=== PATIENT | female | born 2000 | race Asian ===

== ENCOUNTER 2019-06-01 11:31 | Emergency (ER) | payer OTHER ==
[~2019-06-01] VITALS: Ht 157.5 cm; Wt 61.6 kg
[2019-06-01 12:19] LABS: COLOR,URINE YELLOW; GLUCOSE,URINE NEG (NEG)
[2019-06-01 12:20] LABS: BILIRUBIN,URINE NEG (NEG); NITRITE,URINE NEG (NEG); UROBILINOGEN,URINE 0.2 mg/dL (0.2 mg/dL)
[2019-06-01 12:24] LABS: WBC,URINE >40 /HPF (0-4)
[2019-06-01 12:25] LABS: BACTERIA,URINE MOD /HPF (0-FEW); SQUAMOUS EPITHELIAL CELL,UR MOD /LPF
[2019-06-01 12:26] LABS: CLARITY,URINE TURBID
[2019-06-01] MEDS ORDERED: CEPH-264 PO (13:07)
--- NOTE | 2019-06-01 13:07 | PHYS DOC ---
Past History Past Medical History: No Pertinent History Past Surgical History: No Surgical History Alcohol Use: None Adult General Chief Complaint Chief Complaint: PELVIC PAIN HPI HPI 18-year-old female that is 14 weeks presents with dysuria and increased urinary frequency. The patient has been having some dysuria and low back pain for few days. The dysuria started 4 days ago. She has not had a fever at home. The pain comes and goes. It is moderate in intensity. She is concerned for UTI. She is never had a kidney stone. She has had no vaginal bleeding no vaginal discharge. She has no other complaints at this time. Review of Systems Review of Systems Constitutional: Denies fever or chills [] Eyes: Denies change in visual acuity, redness, or eye pain [] HENT: Denies nasal congestion or sore throat [] Respiratory: Denies cough or shortness of breath [] Cardiovascular: No additional information not addressed in HPI [] GI: Denies abdominal pain, nausea, vomiting, bloody stools or diarrhea [] : Denies dysuria or hematuria [] Musculoskeletal: Low back pain [] Integument: Denies rash or skin lesions [] Neurologic: Denies headache, focal weakness or sensory changes [] Endocrine: Denies polyuria or polydipsia [] All other systems were reviewed and found to be within normal limits, except as documented in this note. Allergies Allergies Allergies Coded Allergies Type Severity Reaction Last Updated Verified No Known Drug Allergies 06/01/19 No Physical Exam Physical Exam Constitutional: Well developed, well nourished, no acute distress, non-toxic appearance. [] HENT: Normocephalic, atraumatic, bilateral external ears normal, oropharynx moist, no oral exudates, nose normal. [] Eyes: PERRLA, EOMI, conjunctiva normal, no discharge. [] Neck: Normal range of motion, no tenderness, supple, no stridor. [] Cardiovascular:Heart rate regular rhythm, no murmur [] Lungs & Thorax: Bilateral breath sounds clear to auscultation [] Abdomen: Bowel sounds normal, soft, suprapubic tenderness, no masses, no pulsatile masses. [] Skin: Warm, dry, no erythema, no rash. [] Back: No tenderness, no CVA tenderness. [] Extremities: No tenderness, no cyanosis, no clubbing, ROM intact, no edema. [] Neurologic: Alert and oriented X 3, normal motor function, normal sensory function, no focal deficits noted. [] Psychologic: Affect normal, judgement normal, mood normal. [] Current Patient Data Vital Signs Vital Signs Date Time Temp Pulse Resp B/P (MAP) Pulse Ox O2 Delivery O2 Flow Rate FiO2 06/01/19 11:59 97.9 97 18 111/63 (79) 100 Room Air Lab Results Laboratory Tests Test 06/01/19 11:45 06/01/19 11:59 Urine Collection Type Unknown Urine Color Yellow Urine Clarity Turbid Urine pH 6.0 Urine Specific [place] 1.015 Urine Protein 30 mg/dl (NEG-TRACE) Urine Glucose (UA) Neg mg/dL (NEG) Urine Ketones (Stick) Neg mg/dL (NEG) Urine Blood Small (NEG) Urine Nitrite Neg (NEG) Urine Bilirubin Neg (NEG) Urine Urobilinogen Dipstick 0.2 mg/dL (0.2 mg/dL) Urine Leukocyte Esterase Mod (NEG) Urine RBC 3-5 /HPF (0-2) Urine WBC >40 /HPF (0-4) Urine Squamous Epithelial Cells Mod /LPF Urine Bacteria Mod /HPF (0-FEW) POC Urine HCG, Qualitative hcg positive (Negative) EKG EKG [] Radiology/Procedures Radiology/Procedures [] Course & Med Decision Making Course & Med Decision Making Pertinent Labs and Imaging studies reviewed. (See chart for details) The patient appears to have a UTI. I will treat her with Keflex for 5 days. She is stable for discharge at this time. If this does not resolve her symptoms, she may need an ultrasound to rule out kidney stone. [] Dragon Disclaimer Dragon Disclaimer This electronic medical record was generated, in whole or in part, using a voice recognition dictation system. Departure Departure: Impression: Primary Impression: UTI (urinary tract infection) Additional Impression: Disposition: HOME, SELF-CARE Condition: STABLE Referrals: PCP,ARBEN (PCP) Patient Instructions: - Urinary Tract Infection Scripts Cephalexin (KEFLEX) 500 Mg Capsule 1 CAP PO TID for UTI for 5 Days, #15 CAP 0 Refills Prov: LUIS MART DO 06/01/19 Problem Qualifiers Primary Impression: UTI (urinary tract infection) Urinary tract infection type: acute cystitis Hematuria presence: with hematuria Qualified Codes: N30.01 - Acute cystitis with hematuria Additional Impression: Weeks of gestation: 14 weeks Qualified Codes: Z3A.14 - 14 weeks gestation of LUIS MART DO Jun 01, 2019 13:07
[2019-06-01 13:22] VITALS: BP 93/53
== END 2019-06-01 13:23 | disposition home or self-care (01) ==
LOC: ER 11:31
DX: O23.41 Unspecified infection of urinary tract in pregnancy, first trimester (principal); Z3A.13 13 weeks gestation of pregnancy
CPT/HCPCS: 81001; 81025; 87086; 99283

== ENCOUNTER 2019-07-09 08:27 | Emergency (ER) | payer OTHER ==
[~2019-07-09] VITALS: Ht 157.5 cm; Wt 68.0 kg
[~2019-07-09 08:27] MED LIST: CEPH-264 PO
[2019-07-09 08:36] VITALS: BP 135/73
[2019-07-09 09:18] LABS: BILIRUBIN,URINE NEG (NEG); CLARITY,URINE CLOUDY; COLOR,URINE YELLOW; GLUCOSE,URINE NEG (NEG); NITRITE,URINE NEG (NEG); UROBILINOGEN,URINE 0.2 mg/dL (0.2 mg/dL)
[2019-07-09 09:19] LABS: BACTERIA,URINE MANY /HPF (0-FEW); SQUAMOUS EPITHELIAL CELL,UR MANY /LPF
[2019-07-09] MEDS ORDERED: CEPH-264 PO (09:48)
[2019-07-09] MEDS ORDERED: MICO45CR41 VG (09:48)
--- NOTE | 2019-07-09 09:48 | PHYS DOC ---
Past History Past Medical History: UTI Past Surgical History: No Surgical History Alcohol Use: None General Adult EDM: Chief Complaint: VAGINAL PROBLEM HPI: HPI: Patient is a 18-year-old female who presents to ER today for evaluation of vaginal itching and frequent urination. Patient says she feels like she had a yeast infection. Patient says she is 19 weeks , denies any pelvic pain, no vaginal bleeding. Patient denies any abdominal pain. Patient denies any fever, no cough, no trouble breathing. Review of Systems: Review of Systems: Constitutional: Denies fever or chills Eyes: Denies change in visual acuity HENT: Denies nasal congestion or sore throat Respiratory: Denies cough or shortness of breath Cardiovascular: Denies chest pain or edema GI: Denies abdominal pain, nausea, vomiting, bloody stools or diarrhea : POSITIVE FOR dysuria, VAGINAL ITCHING Musculoskeletal: Denies back pain or joint pain Integument: Denies rash Neurologic: Denies headache, focal weakness or sensory changes Endocrine: Denies polyuria or polydipsia Lymphatic: Denies swollen glands Psychiatric: Denies depression or anxiety Heart Score: Risk Factors: Risk Factors: DM, Current or recent (<one month) smoker, HTN, HLP, family history of CAD, obesity. Risk Scores: Score 0 - 3: 2.5% MACE over next 6 weeks - Discharge Home Score 4 - 6: 20.3% MACE over next 6 weeks - Admit for Clinical Observation Score 7 - 10: 72.7% MACE over next 6 weeks - Early Invasive Strategies Allergies: Allergies: Allergies Coded Allergies Type Severity Reaction Last Updated Verified No Known Drug Allergies 06/01/19 No Physical Exam: PE: Constitutional: Well developed, well nourished, no acute distress, non-toxic appearance. [] HENT: Normocephalic, atraumatic, bilateral external ears normal, oropharynx moist, no oral exudates, nose normal. [] Eyes: PERRLA, EOMI, conjunctiva normal, no discharge. [] Neck: Normal range of motion, no tenderness, supple, no stridor. [] Cardiovascular:Heart rate regular rhythm, no murmur [] Lungs & Thorax: Bilateral breath sounds clear to auscultation [] Abdomen: Bowel sounds normal, soft, no tenderness, no masses, no pulsatile masses. [] Skin: Warm, dry, no erythema, no rash. [] Back: No tenderness, no CVA tenderness. [] Extremities: No tenderness, no cyanosis, no clubbing, ROM intact, no edema. [] Neurologic: Alert and oriented X 3, normal motor function, normal sensory function, no focal deficits noted. [] Psychologic: Affect normal, judgement normal, mood normal. [] Current Patient Data: Labs: Laboratory Tests Test 07/09/19 08:50 Urine Collection Type Unknown Urine Color Yellow Urine Clarity Cloudy Urine pH 7.0 Urine Specific [place] 1.020 Urine Protein Neg (NEG-TRACE) Urine Glucose (UA) Neg mg/dL (NEG) Urine Ketones (Stick) Neg mg/dL (NEG) Urine Blood Neg (NEG) Urine Nitrite Neg (NEG) Urine Bilirubin Neg (NEG) Urine Urobilinogen Dipstick 0.2 mg/dL (0.2 mg/dL) Urine Leukocyte Esterase Small (NEG) Urine RBC 3-5 /HPF (0-2) Urine WBC 5-10 /HPF (0-4) Urine Squamous Epithelial Cells Many /LPF Urine Bacteria Many /HPF (0-FEW) Vital Signs: Vital Signs Date Time Temp Pulse Resp B/P (MAP) Pulse Ox O2 Delivery O2 Flow Rate FiO2 07/09/19 08:36 97.7 82 16 135/73 (93) 100 Room Air EKG: EKG: [] Radiology/Procedures: Radiology/Procedures: [] Course & Med Decision Making: Course & Med Decision Making Pertinent Labs and Imaging studies reviewed. (See chart for details) [] Dragon Disclaimer: Dragon Disclaimer: This electronic medical record was generated, in whole or in part, using a voice recognition dictation system. Departure Departure: Impression: Primary Impression: UTI (urinary tract infection) Additional Impression: Vaginal yeast infection Disposition: 01 HOME, SELF-CARE Condition: STABLE Referrals: PCP,NO (PCP) PLEASE FOLLOW UP WITH YOUR BRAND COORDINATOR DOCTOR NEXT WEEK FOR REEVALUATION. Patient Instructions: - Urinary Tract Infection Scripts Miconazole Nitrate (MONISTAT 7) 45 Gm Cream.appl 1 APPFUL VG QHS for VAGINITIS for 7 Days, #45 GM 0 Refills Prov: SHAHNAZ RODRIGUEZ DO 07/09/19 Cephalexin (KEFLEX) 500 Mg Capsule 1 CAP PO TID for UTI for 7 Days, #21 CAP 0 Refills Prov: RODRIGUEZ,PETER T DO 07/09/19 SHAHNAZ RODRIGUEZ DO July 09, 2019 09:48
== END 2019-07-09 09:52 | disposition home or self-care (01) ==
LOC: ER 08:27
DX: O23.42 Unspecified infection of urinary tract in pregnancy, second trimester (principal); O98.812 Other maternal infectious and parasitic diseases complicating pregnancy, second trimester; B37.3 Candidiasis of vulva and vagina; Z3A.19 19 weeks gestation of pregnancy
CPT/HCPCS: 81001; 87086; 99283